=== PATIENT | male | born 1940 | race Caucasian/White ===

== ENCOUNTER 2020-05-15 11:28 | Emergency (ER) | payer OTHER ==
[2020-05-15 11:44] VITALS: BMI 18.6
[2020-05-15] MEDS ORDERED: LACTATED RINGERS SOLUTION 1000 ML INFUS.BAG IV ONE (13:47)
[2020-05-15 13:54] LABS: VENOUS BASE EXCESS -0.8 mmol/L (-2-2); VENOUS O2 SATURATION 58.4 % (70-80); VENOUS PH 7.306 (7.310-7.410)
[2020-05-15 13:56] LABS: URINE APPEARANCE CLEAR; URINE BILIRUBIN NEGATIVE (NEGATIVE); URINE COLOR YELLOW; URINE GLUCOSE (UA) 3+ (NEGATIVE); URINE KETONE TRACE (NEGATIVE); URINE LEUK ESTERASE NEGATIVE (NEGATIVE); URINE NITRITE NEGATIVE (NEGATIVE); URINE PROTEIN TRACE (NEGATIVE); URINE UROBILINOGEN 0.2 mg/dL (0.2-1.0)
[2020-05-15 13:58] LABS: BASO % 0.5 % (0-2.0); HEMATOCRIT 39.1 % (35.4-49); HEMOGLOBIN 12.8 GM/dL (11.7-16.9); LYMPH % 18.7 % (8-40); MCH 28.1 pg (25.7-33.7); MCHC 32.7 g/dl (32.0-35.9); MEAN CELL VOLUME 85.9 fl (80-96); MEAN PLT VOLUME 7.3 fl (7.5-11.1); MONO % 6.9 % (3.8-10.2); NEUT % 71.9 % (42.8-82.8); PLATELET COUNT 236 K/MM3 (134-434); RBC 4.56 M/mm3 (4.00-5.60); RDW 17.5 % (11.9-15.9); WHITE BLOOD COUNT 5.6 K/mm3 (4.0-10.0)
[2020-05-15 14:20] LABS: CHLORIDE 99 mmol/L (98-107); POTASSIUM 4.7 mmol/L (3.5-5.1); SODIUM 136 mmol/L (136-145)
[2020-05-15 14:22] LABS: ANION GAP 9 MMOL/L (8-16); BLOOD UREA NITROGEN 21.7 mg/dL (7-18); CALCIUM 9.1 mg/dL (8.5-10.1); CO2 28 mmol/L (21-32)
[2020-05-15 14:25] LABS: CREATININE 1.1 mg/dL (0.55-1.3); SGOT/AST 9 U/L (15-37); SGPT/ALT 17 U/L (13-61)
[2020-05-15 14:27] LABS: BILIRUBIN,TOTAL 0.5 mg/dL (0.2-1); TOT PROT 7.4 g/dl (6.4-8.2)
[2020-05-15 14:28] LABS: ALK PHOS 100 U/L (45-117)
[2020-05-15 14:37] LABS: GLUCOSE,RANDOM 434 mg/dL (74-106)
[2020-05-15] MEDS ORDERED: SODIUM CHLORIDE 0.9% 500 ML INFUS.BAG IV ONE (15:02)
[2020-05-15 17:18] VITALS: BP 123/72; PULSE 82; TEMP 97.2
== END 2020-05-15 18:09 | disposition home or self-care (01) ==
LOC: JER 11:28
DX: E11.65 Type 2 diabetes mellitus with hyperglycemia (principal)
CPT/HCPCS: 36415; 71045-TC-FY; 80053; 81003; 82010; 82550; 82803; 82962; 84484; 85025; 93005; 93010; 99285-25

== ENCOUNTER 2020-11-01 13:44 | Inpatient (IN) | payer OTHER ==
[2020-11-01] MEDS ORDERED: SODIUM CHLORIDE 1,000 ML IV STA ×2 (14:29→16:45)
[2020-11-01 16:01] LABS: BASO % 0.1 % (0-2.0); HEMATOCRIT 36.7 % (35.4-49); LYMPH % 3.2 % (8-40); MCH 28.1 pg (25.7-33.7); MCHC 32.7 g/dl (32.0-35.9); MONO % 4.3 % (3.8-10.2); NEUT % 92.4 % (42.8-82.8); PLATELET COUNT 279 K/MM3 (134-434); RBC 4.26 M/mm3 (4.00-5.60); RDW 15.4 % (11.9-15.9); WHITE BLOOD COUNT 13.2 K/mm3 (4.0-10.0)
[2020-11-01 16:09] LABS: INR 1.14 (0.83-1.09); PROTHROMBIN TIME (PATIENT) 13.7 SEC (9.7-13.0)
[2020-11-01 16:11] LABS: ACTIVATED PTT 29.7 SECONDS (25.2-36.5)
[2020-11-01 16:18] LABS: CHLORIDE 103 mmol/L (98-107); SODIUM 137 mmol/L (136-145)
[2020-11-01 16:20] LABS: CALCIUM 8.8 mg/dL (8.5-10.1)
[2020-11-01 16:22] LABS: ALBUMIN 3.2 g/dl (3.4-5.0); ANION GAP 8 MMOL/L (8-16); CO2 26 mmol/L (21-32)
[2020-11-01 16:24] LABS: BLOOD UREA NITROGEN 26.6 mg/dL (7-18); GLUCOSE,RANDOM 144 mg/dL (74-106)
[2020-11-01 16:25] LABS: CREATININE 0.9 mg/dL (0.55-1.3); SGOT/AST 18 U/L (15-37); SGPT/ALT 20 U/L (13-61)
[2020-11-01 16:26] LABS: BILIRUBIN,TOTAL 0.6 mg/dL (0.2-1); TOT PROT 7.4 g/dl (6.4-8.2)
[2020-11-01 16:28] LABS: ALK PHOS 75 U/L (45-117)
[2020-11-01 16:38] LABS: ANISOCYTOSIS 1+; MACROCYTOSIS 0; PLATELET ESTIMATE NORMAL
[2020-11-01 16:39] LABS: PH,URINE 6.5 (5.0-8.0); URINE APPEARANCE CLEAR; URINE BILIRUBIN NEGATIVE (NEGATIVE); URINE COLOR YELLOW; URINE GLUCOSE (UA) NEGATIVE (NEGATIVE); URINE KETONE TRACE (NEGATIVE); URINE LEUK ESTERASE NEGATIVE (NEGATIVE); URINE NITRITE NEGATIVE (NEGATIVE); URINE PROTEIN TRACE (NEGATIVE)
[2020-11-01 16:44] LABS: LACTIC ACID 2.7 mmol/L (0.4-2.0)
[2020-11-01] MEDS ORDERED: AZITHROMYCIN IVPB 500 MG in DEXTROSE 5%-WATER - 250 ML IVPB ONE (18:08)
[2020-11-01] MEDS ORDERED: CEFTRIAXONE 1 GM in DEXTROSE 5%-WATER - 100 ML IVPB ONE (18:08)
[2020-11-01] MEDS ORDERED: CEFTRIAXONE 1 GM/50 ML BAG ONE (18:25)
[2020-11-01] MEDS ORDERED: AZITHROMYCIN IVPB 500 MG/250 ML BAG IVPB ONE (19:24)
[2020-11-01 20:52] LABS: LACTIC ACID 5.5 mmol/L (0.4-2.0)
[2020-11-01] MEDS: predniSONE 20 MG TABLET (UD) PO SCH (21:58)
[2020-11-01] MEDS: PANTOPRAZOLE 40 MG TABLET PO SCH (21:58)
[2020-11-01 22:24] LABS: CHOLESTEROL 148 mg/dL (50-200)
[2020-11-01 22:25] LABS: LDL CHOLESTEROL (ONLY SJRH) 67 mg/dL (5-100); TRIGLYCERIDES 98 mg/dL (0-150)
[2020-11-01 22:27] LABS: HDL CHOLESTEROL 56 mg/dL (40-60)
[2020-11-01 22:28] LABS: LACTIC ACID 4.3 mmol/L (0.4-2.0)
[2020-11-01] MEDS: INSULIN SLIDING SCALE (NOVOLOG) 1 VIAL SQ SCH (22:31)
[2020-11-01] MEDS: SODIUM CHLORIDE 1,000 ML IV SCH (22:33)
[2020-11-01 23:07] VITALS: BMI 18.5
[2020-11-02] MEDS ORDERED: ACETAMINOPHEN 1000 MG/100 ML VIAL (NON FORMULARY) IVPB PRN (05:53)
[2020-11-02] MEDS: INSULIN SLIDING SCALE (NOVOLOG) 1 VIAL SQ SCH ×4 (06:00→21:27)
[2020-11-02 08:11] LABS: BASO % 0.1 % (0-2.0); HEMATOCRIT 33.5 % (35.4-49); HEMOGLOBIN 11.1 GM/dL (11.7-16.9); LYMPH % 6.7 % (8-40); MCHC 33.1 g/dl (32.0-35.9); MEAN CELL VOLUME 87.4 fl (80-96); MONO % 3.5 % (3.8-10.2); NEUT % 89.7 % (42.8-82.8); PLATELET COUNT 255 K/MM3 (134-434); RBC 3.83 M/mm3 (4.00-5.60); RDW 15.4 % (11.9-15.9); WHITE BLOOD COUNT 11.9 K/mm3 (4.0-10.0)
[2020-11-02 08:29] LABS: ALBUMIN 2.6 g/dl (3.4-5.0); BLOOD UREA NITROGEN 18.8 mg/dL (7-18)
[2020-11-02 08:30] LABS: BILIRUBIN,TOTAL 0.4 mg/dL (0.2-1); TOT PROT 6.8 g/dl (6.4-8.2)
[2020-11-02 08:31] LABS: CALCIUM 8.6 mg/dL (8.5-10.1)
[2020-11-02 08:32] LABS: CREATININE 0.8 mg/dL (0.55-1.3); MAGNESIUM 1.9 mg/dL (1.8-2.4); PHOSPHOROUS 3.4 mg/dL (2.5-4.9)
[2020-11-02] MEDS ORDERED: AZITHROMYCIN IVPB 250 MG in DEXTROSE 5%-WATER - 250 ML IVPB SCH (10:00)
[2020-11-02] MEDS ORDERED: CEFTRIAXONE 1 GM in DEXTROSE 5%-WATER - 50 ML IVPB SCH (10:00)
[2020-11-02] MEDS ORDERED: DEXTROSE 5%-WATER - 50 ML IVPB ONE (10:07)
[2020-11-02] MEDS ORDERED: cefTRIAXone SODIUM 1 GM VIAL ONE (10:07)
[2020-11-02] MEDS ORDERED: PT OWN MED DRAWER 7, Y5N ONE (10:07)
[2020-11-02] MEDS: predniSONE 20 MG TABLET (UD) PO SCH (10:12)
[2020-11-02] MEDS: PANTOPRAZOLE 40 MG TABLET PO SCH (10:12)
[2020-11-02] MEDS: ENOXAPARIN NA (PORCINE) 40 MG/0.4 ML DISP.SYRIN SQ SCH (10:13)
[2020-11-02] MEDS: SODIUM CHLORIDE 1,000 ML IV SCH ×2 (16:33→21:27)
[2020-11-03] MEDS: SODIUM CHLORIDE 1,000 ML IV SCH (06:20)
[2020-11-03] MEDS: INSULIN SLIDING SCALE (NOVOLOG) 1 VIAL SQ SCH ×4 (06:20→21:51)
[2020-11-03 08:00] LABS: BASO % 0.2 % (0-2.0); EOS % 0.2 % (0-4.5); HEMATOCRIT 31.6 % (35.4-49); HEMOGLOBIN 10.6 GM/dL (11.7-16.9); LYMPH % 17.2 % (8-40); MCH 29.1 pg (25.7-33.7); MCHC 33.7 g/dl (32.0-35.9); MEAN CELL VOLUME 86.3 fl (80-96); MEAN PLT VOLUME 7.2 fl (7.5-11.1); MONO % 5.5 % (3.8-10.2); NEUT % 76.9 % (42.8-82.8); PLATELET COUNT 293 K/MM3 (134-434); RBC 3.66 M/mm3 (4.00-5.60); RDW 15.7 % (11.9-15.9); WHITE BLOOD COUNT 10.6 K/mm3 (4.0-10.0)
[2020-11-03 08:33] LABS: ALBUMIN 2.4 g/dl (3.4-5.0); BLOOD UREA NITROGEN 26.1 mg/dL (7-18); CALCIUM 8.4 mg/dL (8.5-10.1); MAGNESIUM 1.9 mg/dL (1.8-2.4)
[2020-11-03 08:37] LABS: CREATININE 0.9 mg/dL (0.55-1.3)
[2020-11-03 08:38] LABS: BILIRUBIN,TOTAL 0.3 mg/dL (0.2-1); TOT PROT 6.3 g/dl (6.4-8.2)
[2020-11-03 08:49] LABS: ERYTHROCYTE SEDIMENTATION RATE 88 mm/hr (0-20)
[2020-11-03] MEDS ORDERED: PT OWN MED DRAWER 7, Y5N ONE (09:55)
[2020-11-03] MEDS: PANTOPRAZOLE 40 MG TABLET PO SCH (09:58)
[2020-11-03] MEDS: ENOXAPARIN NA (PORCINE) 40 MG/0.4 ML DISP.SYRIN SQ SCH (09:58)
[2020-11-03] MEDS: predniSONE 20 MG TABLET (UD) PO SCH (09:58)
[2020-11-03] MEDS ORDERED: INSULIN (NOVOLOG) ASPART 100 UNITS/ML 10ML VIAL ONE (21:04)
[2020-11-04] MEDS: INSULIN SLIDING SCALE (NOVOLOG) 1 VIAL SQ SCH ×2 (06:27→12:22)
[2020-11-04 08:09] LABS: BASO % 0.4 % (0-2.0); EOS % 0.3 % (0-4.5); HEMATOCRIT 32.8 % (35.4-49); HEMOGLOBIN 10.8 GM/dL (11.7-16.9); LYMPH % 24.3 % (8-40); MCH 28.3 pg (25.7-33.7); MCHC 32.9 g/dl (32.0-35.9); MEAN CELL VOLUME 86.1 fl (80-96); MEAN PLT VOLUME 6.9 fl (7.5-11.1); MONO % 4.3 % (3.8-10.2); NEUT % 70.7 % (42.8-82.8); PLATELET COUNT 301 K/MM3 (134-434); RBC 3.81 M/mm3 (4.00-5.60); RDW 15.7 % (11.9-15.9); WHITE BLOOD COUNT 8.9 K/mm3 (4.0-10.0)
[2020-11-04 08:30] LABS: CALCIUM 8.6 mg/dL (8.5-10.1)
[2020-11-04 08:32] LABS: ALBUMIN 2.4 g/dl (3.4-5.0); MAGNESIUM 1.9 mg/dL (1.8-2.4)
[2020-11-04 08:35] LABS: CREATININE 0.8 mg/dL (0.55-1.3)
[2020-11-04 08:36] LABS: BILIRUBIN,TOTAL 0.9 mg/dL (0.2-1); TOT PROT 6.3 g/dl (6.4-8.2)
[2020-11-04] MEDS: predniSONE 20 MG TABLET (UD) PO SCH (09:08)
[2020-11-04] MEDS: PANTOPRAZOLE 40 MG TABLET PO SCH (09:09)
[2020-11-04] MEDS: ENOXAPARIN NA (PORCINE) 40 MG/0.4 ML DISP.SYRIN SQ SCH (09:09)
[2020-11-04] MEDS ORDERED: CELECOXIB 200 MG CAPSULE PO SCH (10:00)
[2020-11-04] MEDS ORDERED: INSULIN (NOVOLOG) ASPART 100 UNITS/ML 10ML VIAL ONE (12:19)
[2020-11-04 15:36] VITALS: BP 136/68; PULSE 64; TEMP 97.9
== END 2020-11-04 17:21 | disposition home health service (06) | DRG 546 ==
LOC: JER 13:44 → UNDOADMOB 17:04 → JERBED 17:04 → INTOOBSV 17:04 → JERBED 20:42 → J8W 20:42 → JERBED 11-02 14:54 → J8W 11-02 14:54 → OBSVTOIN 11-02 15:47
PROVIDERS: ADMIT Internal Medicine; ATTEND Nurse Practitioner Acute Care
DX: M06.9 Rheumatoid arthritis, unspecified (principal); J98.11 Atelectasis; E87.2 Acidosis; D72.829 Elevated white blood cell count, unspecified; E11.9 Type 2 diabetes mellitus without complications; E86.0 Dehydration; M25.461 Effusion, right knee; M25.462 Effusion, left knee; R53.1 Weakness; F17.210 Nicotine dependence, cigarettes, uncomplicated
CPT/HCPCS: 36415; 70450-TC; 71045-TC-FY; 71260-TC; 73564-TC-LT-FY; 73564-TC-RT-FY; 74177-TC; 80053; 80061; 81003; 82550; 82962; 83036; 83605; 83721; 83735; 84100; 84443; 84484; 85025; 85610; 85651; 85730; 86140; 87040; 87086; 87804; 87899; 93005; 93010; 97116-GP; 97162-GP; 99285-25; C9803; G0378; J0131; Q9967; U0003; U0005

== ENCOUNTER 2021-11-07 18:30 | Emergency (ER) | payer OTHER ==
[2021-11-07 18:41] VITALS: TEMP 98.7; BMI 21.1
[2021-11-07] MEDS ORDERED: BEBTELOVIMAB (EUA) 175 MG/2 ML VIAL IVPUSH ONE (20:03)
[2021-11-07 22:19] VITALS: BP 117/61; PULSE 79
== END 2021-11-07 22:19 | disposition home or self-care (01) ==
LOC: JCOVINFU 18:30
PROC: 3E033GC Introduction of Other Therapeutic Substance into Peripheral Vein, Percutaneous Approach (ICD-10-PCS; principal; 2021-11-07)
DX: U07.1 COVID-19 (principal)
CPT/HCPCS: 99284-25; M0222; Q0222

== ENCOUNTER 2022-05-08 14:39 | Inpatient (IN) | payer OTHER ==
[2022-05-08 18:37] LABS: BASO % 0.6 % (0-2.0); HEMATOCRIT 34.5 % (35.4-49); HEMOGLOBIN 10.8 GM/dL (11.7-16.9); LYMPH % 23.2 % (8-40); MCH 23.9 pg (25.7-33.7); MCHC 31.4 g/dl (32.0-35.9); MEAN CELL VOLUME 76.1 fl (80-96); MEAN PLT VOLUME 6.9 fl (7.5-11.1); MONO % 8.7 % (3.8-10.2); NEUT % 65.5 % (42.8-82.8); PLATELET COUNT 358 10^3/uL (134-434); RBC 4.54 M/mm3 (4.00-5.60); RDW 18.4 % (11.9-15.9); WHITE BLOOD COUNT 10.1 K/mm3 (4.0-10.0)
[2022-05-08 18:41] LABS: INR 1.06 (0.83-1.09); PROTHROMBIN TIME (PATIENT) 12.2 SEC (9.7-13.0)
[2022-05-08 18:44] LABS: ACTIVATED PTT 29.8 SECONDS (25.2-36.5)
[2022-05-08 19:11] LABS: CALCIUM 9.1 mg/dL (8.5-10.1)
[2022-05-08 19:13] LABS: ALBUMIN 3.4 g/dl (3.4-5.0); BLOOD UREA NITROGEN 28.6 mg/dL (7-18)
[2022-05-08 19:15] LABS: CREATININE 1.1 mg/dL (0.55-1.3)
[2022-05-08 19:17] LABS: BILIRUBIN,TOTAL 0.2 mg/dL (0.2-1); TOT PROT 7.2 g/dl (6.4-8.2)
[2022-05-08] MEDS ORDERED: ENOXAPARIN NA (PORCINE) 60 MG/0.6 ML DISP.SYRIN SQ ONE ×2 (22:15→22:46)
[2022-05-08] MEDS ORDERED: SODIUM CHLORIDE 1,000 ML IV STA (22:53)
[2022-05-09] MEDS: SODIUM CHLORIDE 1,000 ML IV SCH ×2 (01:46→22:13)
[2022-05-09 08:02] LABS: BASO % 0.6 % (0-2.0); EOS % 1.8 % (0-4.5); HEMATOCRIT 30.2 % (35.4-49); HEMOGLOBIN 9.6 GM/dL (11.7-16.9); LYMPH % 24.3 % (8-40); MCH 23.9 pg (25.7-33.7); MCHC 31.7 g/dl (32.0-35.9); MEAN CELL VOLUME 75.4 fl (80-96); MEAN PLT VOLUME 7.1 fl (7.5-11.1); MONO % 8.9 % (3.8-10.2); NEUT % 64.4 % (42.8-82.8); PLATELET COUNT 277 10^3/uL (134-434); RBC 4.01 M/mm3 (4.00-5.60); WHITE BLOOD COUNT 5.9 K/mm3 (4.0-10.0)
[2022-05-09] MEDS ORDERED: ACETAMINOPHEN INJECTION 100 ML IVPB ONE (08:08)
[2022-05-09] MEDS ORDERED: ENOXAPARIN NA (PORCINE) 60 MG/0.6 ML DISP.SYRIN SQ ONE (08:08)
[2022-05-09] MEDS: INSULIN SLIDING SCALE (NOVOLOG) 1 VIAL SQ SCH ×4 (08:23→21:30)
[2022-05-09] MEDS: ACETAMINOPHEN 1000 MG/100 ML BAG IVPB PRN (08:23)
[2022-05-09 09:35] LABS: ALBUMIN 2.9 g/dl (3.4-5.0); CALCIUM 8.5 mg/dL (8.5-10.1); MAGNESIUM 1.7 mg/dL (1.8-2.4)
[2022-05-09 09:37] LABS: CREATININE 0.8 mg/dL (0.55-1.3)
[2022-05-09 09:41] LABS: BILIRUBIN,TOTAL 0.4 mg/dL (0.2-1)
[2022-05-09 10:23] LABS: TOT PROT 6.3 g/dl (6.4-8.2)
[2022-05-09] MEDS: ENOXAPARIN NA (PORCINE) 30 MG/0.3 ML DISP.SYRIN SQ SCH ×2 (11:22→21:30)
[2022-05-09] MEDS: HYDROXYCHLOROQUINE SO4 200 MG TABLET (FP) PO SCH ×2 (11:22→21:29)
[2022-05-09 11:59] LABS: URINE APPEARANCE CLEAR; URINE BILIRUBIN NEGATIVE (NEGATIVE); URINE COLOR YELLOW; URINE GLUCOSE (UA) NEGATIVE (NEGATIVE); URINE KETONE NEGATIVE (NEGATIVE); URINE LEUK ESTERASE NEGATIVE (NEGATIVE); URINE NITRITE NEGATIVE (NEGATIVE); URINE PROTEIN NEGATIVE (NEGATIVE); URINE UROBILINOGEN 0.2 mg/dL (0.2-1.0)
[2022-05-09 12:52] VITALS: BMI 18.6
[2022-05-09] MEDS ORDERED: INSULIN (NOVOLOG) ASPART 100 UNITS/ML 10ML VIAL ONE (21:06)
[2022-05-09] MEDS: ATORVASTATIN CA 20 MG TABLET (FP) PO SCH (21:30)
[2022-05-10] MEDS: SODIUM CHLORIDE 1,000 ML IV SCH (01:45)
[2022-05-10] MEDS: ACETAMINOPHEN 1000 MG/100 ML BAG IVPB PRN (01:45)
[2022-05-10] MEDS: INSULIN SLIDING SCALE (NOVOLOG) 1 VIAL SQ SCH ×4 (06:07→22:17)
[2022-05-10 08:14] LABS: BASO % 0.6 % (0-2.0); EOS % 1.6 % (0-4.5); HEMATOCRIT 29.6 % (35.4-49); HEMOGLOBIN 9.6 GM/dL (11.7-16.9); MCH 24.1 pg (25.7-33.7); MCHC 32.4 g/dl (32.0-35.9); MEAN CELL VOLUME 74.3 fl (80-96); MEAN PLT VOLUME 6.9 fl (7.5-11.1); MONO % 9.3 % (3.8-10.2); NEUT % 61.5 % (42.8-82.8); PLATELET COUNT 275 10^3/uL (134-434); RBC 3.98 M/mm3 (4.00-5.60); RDW 18.2 % (11.9-15.9); WHITE BLOOD COUNT 5.6 K/mm3 (4.0-10.0)
[2022-05-10 08:35] LABS: BLOOD UREA NITROGEN 21.5 mg/dL (7-18); CALCIUM 8.9 mg/dL (8.5-10.1)
[2022-05-10 08:39] LABS: CREATININE 0.8 mg/dL (0.55-1.3)
[2022-05-10] MEDS: HYDROXYCHLOROQUINE SO4 200 MG TABLET (FP) PO SCH ×2 (10:26→22:13)
[2022-05-10] MEDS: ENOXAPARIN NA (PORCINE) 60 MG/0.6 ML DISP.SYRIN SQ SCH ×2 (10:28→22:18)
[2022-05-10] MEDS: ATORVASTATIN CA 20 MG TABLET (FP) PO SCH (22:13)
[2022-05-10] MEDS ORDERED: ACETAMINOPHEN 1000 MG/100 ML BAG IVPB PRN (23:16)
[2022-05-10] MEDS ORDERED: KETOROLAC TROMETHAMINE 15 MG/ML VIAL IVPUSH PRN (23:16)
[2022-05-10] MEDS ORDERED: morphine SULFATE 4 MG/ML VIAL IVPUSH PRN (23:17)
[2022-05-11] MEDS: SODIUM CHLORIDE 1,000 ML IV SCH (04:54)
[2022-05-11] MEDS: INSULIN SLIDING SCALE (NOVOLOG) 1 VIAL SQ SCH ×4 (06:02→22:29)
[2022-05-11] MEDS: ENOXAPARIN NA (PORCINE) 30 MG/0.3 ML DISP.SYRIN SQ SCH (08:45)
[2022-05-11 10:08] LABS: BASO % 0.6 % (0-2.0); EOS % 3.4 % (0-4.5); HEMATOCRIT 29.3 % (35.4-49); HEMOGLOBIN 9.3 GM/dL (11.7-16.9); LYMPH % 36.3 % (8-40); MCHC 31.9 g/dl (32.0-35.9); MEAN CELL VOLUME 75.3 fl (80-96); MEAN PLT VOLUME 6.9 fl (7.5-11.1); MONO % 7.5 % (3.8-10.2); NEUT % 52.2 % (42.8-82.8); PLATELET COUNT 315 10^3/uL (134-434); RDW 18.4 % (11.9-15.9); WHITE BLOOD COUNT 5.8 K/mm3 (4.0-10.0)
[2022-05-11] MEDS: ENOXAPARIN NA (PORCINE) 60 MG/0.6 ML DISP.SYRIN SQ SCH ×2 (10:32→22:04)
[2022-05-11] MEDS: HYDROXYCHLOROQUINE SO4 200 MG TABLET (FP) PO SCH ×2 (10:33→22:03)
[2022-05-11 11:01] LABS: CALCIUM 8.5 mg/dL (8.5-10.1)
[2022-05-11 11:02] LABS: BLOOD UREA NITROGEN 18.1 mg/dL (7-18)
[2022-05-11 11:05] LABS: CREATININE 0.7 mg/dL (0.55-1.3)
[2022-05-11] MEDS: LIDOCAINE 5% TOPICAL PATCH TP SCH (13:47)
[2022-05-11] MEDS ORDERED: CEFTRIAXONE 1 GM in DEXTROSE 5%-WATER - 50 ML IVPB ONE (19:21)
[2022-05-11] MEDS: ATORVASTATIN CA 20 MG TABLET (FP) PO SCH (22:03)
[2022-05-11] MEDS: LIDOCAINE PATCH REMOVAL MC SCH (22:03)
[2022-05-12] MEDS: INSULIN SLIDING SCALE (NOVOLOG) 1 VIAL SQ SCH ×4 (07:00→23:32)
[2022-05-12] MEDS: SODIUM CHLORIDE 1,000 ML IV SCH (08:24)
[2022-05-12] MEDS: PANTOPRAZOLE 40 MG TABLET PO SCH (10:14)
[2022-05-12] MEDS: LIDOCAINE 5% TOPICAL PATCH TP SCH (10:14)
[2022-05-12] MEDS: ENOXAPARIN NA (PORCINE) 60 MG/0.6 ML DISP.SYRIN SQ SCH ×2 (10:15→22:54)
[2022-05-12] MEDS: HYDROXYCHLOROQUINE SO4 200 MG TABLET (FP) PO SCH ×2 (10:16→22:54)
[2022-05-12] MEDS ORDERED: INSULIN (NOVOLOG) ASPART 100 UNITS/ML 10ML VIAL ONE (22:46)
[2022-05-12] MEDS: LIDOCAINE PATCH REMOVAL MC SCH (22:54)
[2022-05-12] MEDS: ATORVASTATIN CA 20 MG TABLET (FP) PO SCH (22:54)
[2022-05-13] MEDS: INSULIN SLIDING SCALE (NOVOLOG) 1 VIAL SQ SCH ×4 (06:33→22:13)
[2022-05-13] MEDS ORDERED: SODIUM CHLORIDE 1,000 ML IV SCH ×2 (08:15→18:09)
[2022-05-13 08:56] LABS: N-TERMINAL BNP 528.1 pg/ml (5-450)
[2022-05-13 10:22] LABS: BASO % 0.6 % (0-2.0); EOS % 3.4 % (0-4.5); HEMATOCRIT 29.3 % (35.4-49); HEMOGLOBIN 9.4 GM/dL (11.7-16.9); LYMPH % 29.4 % (8-40); MCH 24.1 pg (25.7-33.7); MEAN CELL VOLUME 75.1 fl (80-96); MEAN PLT VOLUME 6.8 fl (7.5-11.1); MONO % 8.7 % (3.8-10.2); NEUT % 57.9 % (42.8-82.8); PLATELET COUNT 304 10^3/uL (134-434); RDW 18.4 % (11.9-15.9); WHITE BLOOD COUNT 4.5 K/mm3 (4.0-10.0)
[2022-05-13] MEDS: PANTOPRAZOLE 40 MG TABLET PO SCH (10:29)
[2022-05-13] MEDS: LIDOCAINE 5% TOPICAL PATCH TP SCH (10:29)
[2022-05-13] MEDS: HYDROXYCHLOROQUINE SO4 200 MG TABLET (FP) PO SCH ×2 (10:29→22:04)
[2022-05-13 10:31] LABS: ALBUMIN 2.6 g/dl (3.4-5.0); BLOOD UREA NITROGEN 15.6 mg/dL (7-18); CALCIUM 8.3 mg/dL (8.5-10.1); MAGNESIUM 1.9 mg/dL (1.8-2.4)
[2022-05-13 10:34] LABS: CREATININE 0.7 mg/dL (0.55-1.3)
[2022-05-13 10:36] LABS: BILIRUBIN,TOTAL 0.3 mg/dL (0.2-1); TOT PROT 6.2 g/dl (6.4-8.2)
[2022-05-13] MEDS ORDERED: FENTANYL CITRATE/PF 50 MCG/ML VIAL ONE ×2 (16:18→17:50)
[2022-05-13] MEDS ORDERED: MIDAZOLAM HCL 2 MG/2 ML SINGLE DOSE VIAL ONE (16:18)
[2022-05-13] MEDS ORDERED: ceFAZolin SODIUM 1 GM VIAL IVPB ONE (16:50)
[2022-05-13] MEDS ORDERED: ceFAZolin SODIUM 1 GM VIAL ONE (16:53)
[2022-05-13] MEDS ORDERED: LIDOCAINE HCL 1%, 10 MG/ML (20ML VIAL) NR ONE ×3 (16:56)
[2022-05-13] MEDS ORDERED: HEPARIN NA (PORCINE) 5,000 UNITS/ML 1ML VIAL TP ONE ×2 (16:58)
[2022-05-13] MEDS ORDERED: HEPARIN NA (PORCINE) 5,000 UNITS/ML 1ML VIAL ONE (17:08)
[2022-05-13] MEDS ORDERED: ONDANSETRON 4 MG/2 ML VIAL ONE (17:44)
[2022-05-13] MEDS ORDERED: KETOROLAC TROMETHAMINE 30 MG/1 ML VIAL ONE (17:44)
[2022-05-13] MEDS ORDERED: LACTATED RINGERS SOLUTION 1,000 ML IV SCH ×2 (17:45→18:09)
[2022-05-13] MEDS ORDERED: PROMETHAZINE HCL 25 MG/1 ML VIAL IVPUSH PRN ×2 (17:45→18:09)
[2022-05-13] MEDS ORDERED: ONDANSETRON 4 MG/2 ML VIAL IVPUSH PRN ×2 (17:45→18:09)
[2022-05-13] MEDS ORDERED: KETOROLAC TROMETHAMINE 15 MG/ML VIAL IVPUSH ONE (17:46)
[2022-05-13] MEDS: KETOROLAC TROMETHAMINE 15 MG/ML VIAL IVPUSH ONE ×2 (17:46→17:47)
[2022-05-13] MEDS ORDERED: hydrALAZINE HCL 20 MG/ML VIAL IVPUSH ONE ×2 (17:47→18:09)
[2022-05-13] MEDS ORDERED: CLOPIDOGREL BISULFATE 75 MG TABLET (FP) ONE (17:55)
[2022-05-13] MEDS ORDERED: morphine SULFATE 4 MG/ML VIAL IVPUSH PRN (18:09)
[2022-05-13] MEDS: CLOPIDOGREL BISULFATE 75 MG TABLET (FP) PO SCH (18:15)
[2022-05-13] MEDS ORDERED: LIDOCAINE PATCH REMOVAL MC SCH ×2 (22:00)
[2022-05-13] MEDS ORDERED: ATORVASTATIN CA 20 MG TABLET (FP) PO SCH (22:00)
[2022-05-14] MEDS: INSULIN SLIDING SCALE (NOVOLOG) 1 VIAL SQ SCH (06:19)
[2022-05-14 08:10] VITALS: BP 127/61; PULSE 80; RESP 18; TEMP 97.7
[2022-05-14] MEDS: HYDROXYCHLOROQUINE SO4 200 MG TABLET (FP) PO SCH (09:28)
[2022-05-14] MEDS: CLOPIDOGREL BISULFATE 75 MG TABLET (FP) PO SCH (09:29)
[2022-05-14 09:36] LABS: BASO % 0.8 % (0-2.0); EOS % 2.6 % (0-4.5); HEMATOCRIT 29.5 % (35.4-49); HEMOGLOBIN 9.3 GM/dL (11.7-16.9); LYMPH % 18.1 % (8-40); MCH 23.9 pg (25.7-33.7); MCHC 31.7 g/dl (32.0-35.9); MEAN CELL VOLUME 75.3 fl (80-96); MEAN PLT VOLUME 6.7 fl (7.5-11.1); MONO % 8.7 % (3.8-10.2); NEUT % 69.8 % (42.8-82.8); PLATELET COUNT 311 10^3/uL (134-434); RBC 3.92 M/mm3 (4.00-5.60); RDW 18.1 % (11.9-15.9); WHITE BLOOD COUNT 5.3 K/mm3 (4.0-10.0)
[2022-05-14 09:47] LABS: ALBUMIN 2.6 g/dl (3.4-5.0); BLOOD UREA NITROGEN 23.5 mg/dL (7-18)
[2022-05-14 09:48] LABS: CALCIUM 8.5 mg/dL (8.5-10.1)
[2022-05-14 09:50] LABS: BILIRUBIN,TOTAL 0.4 mg/dL (0.2-1); CREATININE 0.9 mg/dL (0.55-1.3)
[2022-05-14 09:51] LABS: TOT PROT 6.4 g/dl (6.4-8.2)
[2022-05-14] MEDS ORDERED: LIDOCAINE 5% TOPICAL PATCH TP SCH (10:00)
[2022-05-14] MEDS ORDERED: PANTOPRAZOLE 40 MG TABLET PO SCH (10:00)
== END 2022-05-14 12:53 | disposition home health service (06) | DRG 253 ==
LOC: JER 14:39 → JERBED 21:58 → J8W 05-09 17:34
PROVIDERS: ADMIT Internal Medicine; ATTEND Nurse Practitioner Acute Care
PROC: B41DZZZ Fluoroscopy of Aorta and Bilateral Lower Extremity Arteries (ICD-10-PCS; 2022-05-13)
PROC: B40FYZZ Plain Radiography of Right Lower Extremity Arteries using Other Contrast (ICD-10-PCS; 2022-05-13)
PROC: 047H3EZ Dilation of Right External Iliac Artery with Two Intraluminal Devices, Percutaneous Approach (ICD-10-PCS; principal; 2022-05-13 16:30)
DX: E11.51 Type 2 diabetes mellitus with diabetic peripheral angiopathy without gangrene (principal); E87.20 Acidosis, unspecified; N17.9 Acute kidney failure, unspecified; J98.11 Atelectasis; I70.211 Atherosclerosis of native arteries of extremities with intermittent claudication, right leg; I74.5 Embolism and thrombosis of iliac artery; I10 Essential (primary) hypertension; E78.5 Hyperlipidemia, unspecified; M06.9 Rheumatoid arthritis, unspecified; D72.829 Elevated white blood cell count, unspecified; R91.8 Other nonspecific abnormal finding of lung field
CPT/HCPCS: 0241U-QW; 36415; 71045-TC-FY; 75635-TC; 76000-TC-FY; 80048; 80053; 80061; 81003; 82962; 83036; 83605; 83735; 83880; 84100; 84443; 85025; 85610; 85730; 86850; 86900; 86901; 87086; 93005; 93010; 93306-TC; 93971-TC; 94010; 94760; 99285-25; C1760; J1644; Q9967

== ENCOUNTER 2022-06-24 18:19 | Inpatient (IN) | payer OTHER ==
[2022-06-24 18:34] VITALS: BMI 19.9
[2022-06-24 21:00] LABS: VENOUS BASE EXCESS -0.8 mmol/L (-2-2); VENOUS O2 SATURATION 30.2 % (70-80); VENOUS PCO2 48.7 mmHg (38-52); VENOUS PH 7.338 (7.310-7.410)
[2022-06-24 21:07] LABS: BASO % 0.3 % (0-2.0); EOS % 0.6 % (0-4.5); HEMATOCRIT 34.8 % (35.4-49); HEMOGLOBIN 10.8 GM/dL (11.7-16.9); LYMPH % 10.5 % (8-40); MCH 23.8 pg (25.7-33.7); MEAN CELL VOLUME 76.6 fl (80-96); MEAN PLT VOLUME 6.7 fl (7.5-11.1); MONO % 5.5 % (3.8-10.2); NEUT % 83.1 % (42.8-82.8); PLATELET COUNT 307 10^3/uL (134-434); RBC 4.55 M/mm3 (4.00-5.60); RDW 18.2 % (11.9-15.9); WHITE BLOOD COUNT 9.6 K/mm3 (4.0-10.0)
[2022-06-24 21:24] LABS: CALCIUM 8.8 mg/dL (8.5-10.1)
[2022-06-24 21:25] LABS: ALBUMIN 3.3 g/dl (3.4-5.0); BLOOD UREA NITROGEN 31.9 mg/dL (7-18)
[2022-06-24 21:28] LABS: CREATININE 1.4 mg/dL (0.55-1.3)
[2022-06-24 21:30] LABS: BILIRUBIN,TOTAL 0.2 mg/dL (0.2-1); TOT PROT 7.1 g/dl (6.4-8.2)
[2022-06-24 21:36] LABS: PH,URINE 7.5 (5.0-8.0); URINE APPEARANCE CLEAR; URINE BILIRUBIN NEGATIVE (NEGATIVE); URINE COLOR YELLOW; URINE GLUCOSE (UA) NEGATIVE (NEGATIVE); URINE KETONE NEGATIVE (NEGATIVE); URINE LEUK ESTERASE NEGATIVE (NEGATIVE); URINE NITRITE NEGATIVE (NEGATIVE); URINE PROTEIN TRACE (NEGATIVE)
[2022-06-24] MEDS ORDERED: ASPIRIN 325 MG ENTERIC COATED TABLET (FP) PO ONE (22:06)
[2022-06-24] MEDS ORDERED: ASPIRIN 325 MG ENTERIC COATED TABLET (FP) ONE (22:14)
[2022-06-24] MEDS ORDERED: HALOPERIDOL LACTATE 5 MG/ML IM ONE ×2 (22:48→23:12)
[2022-06-25] MEDS ORDERED: SODIUM CHLORIDE 500 ML IV STA (04:56)
[2022-06-25] MEDS ORDERED: SODIUM CHLORIDE 1,000 ML IV SCH (05:00)
[2022-06-25 06:24] LABS: CALCIUM 9.2 mg/dL (8.5-10.1)
[2022-06-25 06:25] LABS: ALBUMIN 3.4 g/dl (3.4-5.0); BLOOD UREA NITROGEN 26.2 mg/dL (7-18); MAGNESIUM 1.9 mg/dL (1.8-2.4)
[2022-06-25 06:26] LABS: BASO % 0.6 % (0-2.0); EOS % 0.9 % (0-4.5); HEMATOCRIT 34.8 % (35.4-49); HEMOGLOBIN 10.9 GM/dL (11.7-16.9); LYMPH % 18.1 % (8-40); MCHC 31.5 g/dl (32.0-35.9); MEAN CELL VOLUME 76.2 fl (80-96); MEAN PLT VOLUME 6.6 fl (7.5-11.1); MONO % 7.7 % (3.8-10.2); NEUT % 72.7 % (42.8-82.8); PLATELET COUNT 303 10^3/uL (134-434); RBC 4.56 M/mm3 (4.00-5.60); RDW 18.3 % (11.9-15.9); WHITE BLOOD COUNT 8.8 K/mm3 (4.0-10.0)
[2022-06-25 06:28] LABS: CREATININE 0.9 mg/dL (0.55-1.3); PHOSPHOROUS 4.2 mg/dL (2.5-4.9)
[2022-06-25 06:29] LABS: BILIRUBIN,TOTAL 0.5 mg/dL (0.2-1); TOT PROT 7.4 g/dl (6.4-8.2)
[2022-06-25] MEDS: INSULIN SLIDING SCALE (NOVOLOG) 1 VIAL SQ SCH ×3 (07:34→21:36)
[2022-06-25] MEDS: ENOXAPARIN NA (PORCINE) 40 MG/0.4 ML DISP.SYRIN SQ SCH (11:56)
[2022-06-25] MEDS: ASPIRIN COATED 81 MG TABLET.EC PO SCH (11:56)
[2022-06-25] MEDS: CLOPIDOGREL BISULFATE 75 MG TABLET (FP) PO SCH (11:56)
[2022-06-25] MEDS ORDERED: ENOXAPARIN NA (PORCINE) 40 MG/0.4 ML DISP.SYRIN SQ ONE (11:57)
[2022-06-25] MEDS: ATORVASTATIN CA 80 MG TABLET (FP) PO SCH (21:36)
[2022-06-25] MEDS: HYDROXYCHLOROQUINE SO4 200 MG TABLET (FP) PO SCH (22:13)
[2022-06-26] MEDS: INSULIN SLIDING SCALE (NOVOLOG) 1 VIAL SQ SCH ×3 (06:05→17:12)
[2022-06-26 08:36] LABS: BASO % 0.3 % (0-2.0); EOS % 0.3 % (0-4.5); HEMATOCRIT 38.8 % (35.4-49); HEMOGLOBIN 12.3 GM/dL (11.7-16.9); LYMPH % 12.5 % (8-40); MCH 24.1 pg (25.7-33.7); MCHC 31.8 g/dl (32.0-35.9); MEAN CELL VOLUME 75.7 fl (80-96); MEAN PLT VOLUME 6.8 fl (7.5-11.1); MONO % 6.3 % (3.8-10.2); NEUT % 80.6 % (42.8-82.8); PLATELET COUNT 372 10^3/uL (134-434); RBC 5.12 M/mm3 (4.00-5.60); RDW 17.9 % (11.9-15.9); WHITE BLOOD COUNT 9.4 K/mm3 (4.0-10.0)
[2022-06-26 08:54] LABS: CALCIUM 9.4 mg/dL (8.5-10.1)
[2022-06-26 08:55] LABS: ALBUMIN 3.6 g/dl (3.4-5.0)
[2022-06-26 08:59] LABS: BILIRUBIN,TOTAL 0.6 mg/dL (0.2-1)
[2022-06-26] MEDS: ENOXAPARIN NA (PORCINE) 40 MG/0.4 ML DISP.SYRIN SQ SCH (11:44)
[2022-06-26] MEDS: ASPIRIN COATED 81 MG TABLET.EC PO SCH (11:56)
[2022-06-26] MEDS: CLOPIDOGREL BISULFATE 75 MG TABLET (FP) PO SCH (11:56)
[2022-06-26] MEDS: HYDROXYCHLOROQUINE SO4 200 MG TABLET (FP) PO SCH (11:56)
[2022-06-26] MEDS ORDERED: DEXTROSE 5%-0.45% SALINE 1,000 ML IV SCH (16:15)
[2022-06-27] MEDS: INSULIN SLIDING SCALE (NOVOLOG) 1 VIAL SQ SCH ×5 (01:13→21:36)
[2022-06-27] MEDS ORDERED: ACETAMINOPHEN 1000 MG/100 ML BAG IVPB PRN (01:34)
[2022-06-27 07:34] LABS: BASO % 1.1 % (0-2.0); EOS % 0.2 % (0-4.5); HEMATOCRIT 34.8 % (35.4-49); HEMOGLOBIN 11.2 GM/dL (11.7-16.9); LYMPH % 16.4 % (8-40); MCH 24.3 pg (25.7-33.7); MCHC 32.2 g/dl (32.0-35.9); MEAN CELL VOLUME 75.7 fl (80-96); MEAN PLT VOLUME 6.7 fl (7.5-11.1); MONO % 10.7 % (3.8-10.2); NEUT % 71.6 % (42.8-82.8); PLATELET COUNT 355 10^3/uL (134-434); RDW 17.9 % (11.9-15.9); WHITE BLOOD COUNT 9.6 K/mm3 (4.0-10.0)
[2022-06-27 07:57] LABS: ALBUMIN 3.2 g/dl (3.4-5.0); CALCIUM 8.6 mg/dL (8.5-10.1); MAGNESIUM 1.9 mg/dL (1.8-2.4)
[2022-06-27 07:59] LABS: CREATININE 1.2 mg/dL (0.55-1.3)
[2022-06-27 08:02] LABS: BILIRUBIN,TOTAL 0.6 mg/dL (0.2-1); TOT PROT 7.2 g/dl (6.4-8.2)
[2022-06-27] MEDS: ASPIRIN 300 MG SUPP.RECT RC SCH (10:14)
[2022-06-27] MEDS: ENOXAPARIN NA (PORCINE) 40 MG/0.4 ML DISP.SYRIN SQ SCH (10:14)
[2022-06-27] MEDS: AMINO ACIDS 4.25%/D5W 1,000 ML IV SCH (11:54)
[2022-06-28] MEDS: AMINO ACIDS 4.25%/D5W 1,000 ML IV SCH ×2 (00:41→11:57)
[2022-06-28] MEDS: INSULIN SLIDING SCALE (NOVOLOG) 1 VIAL SQ SCH ×4 (06:40→22:47)
[2022-06-28 07:58] LABS: BASO % 0.4 % (0-2.0); EOS % 0.4 % (0-4.5); HEMATOCRIT 33.6 % (35.4-49); HEMOGLOBIN 10.6 GM/dL (11.7-16.9); LYMPH % 15.2 % (8-40); MCHC 31.6 g/dl (32.0-35.9); MEAN CELL VOLUME 75.8 fl (80-96); MEAN PLT VOLUME 7.1 fl (7.5-11.1); MONO % 12.4 % (3.8-10.2); NEUT % 71.6 % (42.8-82.8); PLATELET COUNT 322 10^3/uL (134-434); RBC 4.44 M/mm3 (4.00-5.60); RDW 17.8 % (11.9-15.9); WHITE BLOOD COUNT 6.5 K/mm3 (4.0-10.0)
[2022-06-28 08:33] LABS: ALBUMIN 2.8 g/dl (3.4-5.0); BLOOD UREA NITROGEN 39.1 mg/dL (7-18); CALCIUM 8.3 mg/dL (8.5-10.1); MAGNESIUM 1.7 mg/dL (1.8-2.4)
[2022-06-28 08:36] LABS: CREATININE 0.8 mg/dL (0.55-1.3)
[2022-06-28 08:38] LABS: BILIRUBIN,TOTAL 0.5 mg/dL (0.2-1); TOT PROT 6.7 g/dl (6.4-8.2)
[2022-06-28] MEDS: ASPIRIN 300 MG SUPP.RECT RC SCH (10:15)
[2022-06-28] MEDS: ENOXAPARIN NA (PORCINE) 40 MG/0.4 ML DISP.SYRIN SQ SCH (10:16)
[2022-06-28] MEDS ORDERED: MAGNESIUM 2GM/50ML STERILE WATER IVPB IVPB ONE (10:29)
[2022-06-28] MEDS: ATORVASTATIN CA 80 MG TABLET (FP) PO SCH (22:47)
[2022-06-28] MEDS: HYDROXYCHLOROQUINE SO4 200 MG TABLET (FP) PO SCH (22:47)
[2022-06-29] MEDS: AMINO ACIDS 4.25%/D5W 1,000 ML IV SCH ×2 (00:53→11:29)
[2022-06-29] MEDS: INSULIN SLIDING SCALE (NOVOLOG) 1 VIAL SQ SCH ×4 (06:56→21:48)
[2022-06-29 07:46] LABS: BASO % 0.4 % (0-2.0); EOS % 0.8 % (0-4.5); HEMATOCRIT 33.4 % (35.4-49); HEMOGLOBIN 10.6 GM/dL (11.7-16.9); LYMPH % 19.1 % (8-40); MCHC 31.7 g/dl (32.0-35.9); MEAN CELL VOLUME 75.8 fl (80-96); MEAN PLT VOLUME 7.2 fl (7.5-11.1); MONO % 13.8 % (3.8-10.2); NEUT % 65.9 % (42.8-82.8); PLATELET COUNT 297 10^3/uL (134-434); RBC 4.41 M/mm3 (4.00-5.60); RDW 17.8 % (11.9-15.9); WHITE BLOOD COUNT 5.4 K/mm3 (4.0-10.0)
[2022-06-29 08:42] LABS: ALBUMIN 2.5 g/dl (3.4-5.0); BLOOD UREA NITROGEN 38.1 mg/dL (7-18); CALCIUM 8.7 mg/dL (8.5-10.1); MAGNESIUM 1.9 mg/dL (1.8-2.4)
[2022-06-29 08:45] LABS: CREATININE 0.8 mg/dL (0.55-1.3)
[2022-06-29 08:46] LABS: BILIRUBIN,TOTAL 0.4 mg/dL (0.2-1); TOT PROT 6.4 g/dl (6.4-8.2)
[2022-06-29] MEDS: CLOPIDOGREL BISULFATE 75 MG TABLET (FP) PO SCH (09:37)
[2022-06-29] MEDS: ENOXAPARIN NA (PORCINE) 40 MG/0.4 ML DISP.SYRIN SQ SCH (09:37)
[2022-06-29] MEDS: HYDROXYCHLOROQUINE SO4 200 MG TABLET (FP) PO SCH ×2 (09:37→21:39)
[2022-06-29] MEDS: ASPIRIN 300 MG SUPP.RECT RC SCH (09:37)
[2022-06-29] MEDS: METOPROLOL TARTRATE 5 MG/5 ML VIAL IVPUSH PRN (16:20)
[2022-06-29] MEDS: AMINO ACIDS/PROTEIN HYDROLYS 30 ML LIQUID.PKT PO SCH (17:45)
[2022-06-29] MEDS ORDERED: METOPROLOL TARTRATE 5 MG/5 ML VIAL IVPUSH ONE (21:34)
[2022-06-29] MEDS: ATORVASTATIN CA 20 MG TABLET (FP) PO SCH (21:38)
[2022-06-29] MEDS: METOPROLOL TARTRATE 25 MG TABLET (FP) PO SCH (21:38)
[2022-06-29] MEDS ORDERED: ACETAMINOPHEN 1000 MG/100 ML BAG IVPB ONE (21:39)
[2022-06-30] MEDS ORDERED: SODIUM CHLORIDE 250 ML IV STA ×2 (02:11→05:18)
[2022-06-30 04:13] LABS: BASO % 0.3 % (0-2.0); EOS % 0.1 % (0-4.5); HEMATOCRIT 27.5 % (35.4-49); HEMOGLOBIN 8.9 GM/dL (11.7-16.9); LYMPH % 12.9 % (8-40); MCH 24.7 pg (25.7-33.7); MCHC 32.6 g/dl (32.0-35.9); MEAN CELL VOLUME 75.9 fl (80-96); MEAN PLT VOLUME 7.2 fl (7.5-11.1); NEUT % 72.7 % (42.8-82.8); PLATELET COUNT 349 10^3/uL (134-434); RBC 3.62 M/mm3 (4.00-5.60); RDW 17.4 % (11.9-15.9); WHITE BLOOD COUNT 7.8 K/mm3 (4.0-10.0)
[2022-06-30 04:34] LABS: ALBUMIN 2.3 g/dl (3.4-5.0); CALCIUM 8.2 mg/dL (8.5-10.1)
[2022-06-30 04:37] LABS: CREATININE 1.2 mg/dL (0.55-1.3)
[2022-06-30 04:39] LABS: BILIRUBIN,TOTAL 0.5 mg/dL (0.2-1); TOT PROT 6.1 g/dl (6.4-8.2)
[2022-06-30 04:57] LABS: BLOOD UREA NITROGEN 79.7 mg/dL (7-18); LACTIC ACID 2.2 mmol/L (0.4-2.0)
[2022-06-30] MEDS ORDERED: VANCOMYCIN/WATER FOR INJ (PEG) 1,000 MG/200 ML BAG IVPB ONE (05:21)
[2022-06-30] MEDS: INSULIN SLIDING SCALE (NOVOLOG) 1 VIAL SQ SCH ×4 (07:08→22:43)
[2022-06-30] MEDS: METOPROLOL TARTRATE 5 MG/5 ML VIAL IVPUSH PRN (07:38)
[2022-06-30] MEDS ORDERED: SODIUM CHLORIDE 500 ML IV STA (07:51)
[2022-06-30] MEDS: AMINO ACIDS/PROTEIN HYDROLYS 30 ML LIQUID.PKT PO SCH ×2 (08:01→17:36)
[2022-06-30 08:28] LABS: BASO % 0.3 % (0-2.0); EOS % 0.1 % (0-4.5); HEMATOCRIT 31.3 % (35.4-49); LYMPH % 14.3 % (8-40); MCH 24.5 pg (25.7-33.7); MCHC 31.9 g/dl (32.0-35.9); MEAN CELL VOLUME 76.8 fl (80-96); MEAN PLT VOLUME 7.6 fl (7.5-11.1); MONO % 10.7 % (3.8-10.2); NEUT % 74.6 % (42.8-82.8); PLATELET COUNT 402 10^3/uL (134-434); RBC 4.08 M/mm3 (4.00-5.60); RDW 18.3 % (11.9-15.9)
[2022-06-30 08:53] LABS: CALCIUM 8.4 mg/dL (8.5-10.1)
[2022-06-30 08:54] LABS: ALBUMIN 2.4 g/dl (3.4-5.0); BLOOD UREA NITROGEN 77.2 mg/dL (7-18); MAGNESIUM 1.9 mg/dL (1.8-2.4)
[2022-06-30 08:58] LABS: CREATININE 1.2 mg/dL (0.55-1.3)
[2022-06-30 08:59] LABS: BILIRUBIN,TOTAL 0.5 mg/dL (0.2-1); TOT PROT 6.2 g/dl (6.4-8.2)
[2022-06-30 09:03] LABS: LACTIC ACID 3.1 mmol/L (0.4-2.0)
[2022-06-30] MEDS: HYDROXYCHLOROQUINE SO4 200 MG TABLET (FP) PO SCH ×2 (09:49→22:43)
[2022-06-30] MEDS: CLOPIDOGREL BISULFATE 75 MG TABLET (FP) PO SCH (09:49)
[2022-06-30] MEDS: ASPIRIN COATED 81 MG TABLET.EC PO SCH (09:49)
[2022-06-30] MEDS: ENOXAPARIN NA (PORCINE) 40 MG/0.4 ML DISP.SYRIN SQ SCH (09:49)
[2022-06-30] MEDS: METOPROLOL TARTRATE 25 MG TABLET (FP) PO SCH ×3 (09:58→22:43)
[2022-06-30] MEDS ORDERED: ENOXAPARIN NA (PORCINE) 60 MG/0.6 ML DISP.SYRIN SQ ONE (13:45)
[2022-06-30] MEDS: SODIUM CHLORIDE 1,000 ML IV SCH (16:00)
[2022-06-30] MEDS: PIPERACILLIN/TAZOB 3.375 GM 3.375 GM in DEXTROSE 5%-WATER - 50 ML IVPB SCH (17:37)
[2022-06-30] MEDS: ENOXAPARIN NA (PORCINE) 60 MG/0.6 ML DISP.SYRIN SQ SCH (22:43)
[2022-06-30] MEDS: ATORVASTATIN CA 20 MG TABLET (FP) PO SCH (22:43)
[2022-07-01] MEDS: PIPERACILLIN/TAZOB 3.375 GM 3.375 GM in DEXTROSE 5%-WATER - 50 ML IVPB SCH ×3 (03:09→17:12)
[2022-07-01 08:36] LABS: BASO % 0.2 % (0-2.0); HEMATOCRIT 25.3 % (35.4-49); HEMOGLOBIN 8.2 GM/dL (11.7-16.9); LYMPH % 10.6 % (8-40); MCH 24.3 pg (25.7-33.7); MCHC 32.4 g/dl (32.0-35.9); MEAN CELL VOLUME 74.9 fl (80-96); MEAN PLT VOLUME 7.6 fl (7.5-11.1); MONO % 10.6 % (3.8-10.2); NEUT % 78.6 % (42.8-82.8); PLATELET COUNT 391 10^3/uL (134-434); RBC 3.37 M/mm3 (4.00-5.60); RDW 18.4 % (11.9-15.9); WHITE BLOOD COUNT 12.4 K/mm3 (4.0-10.0)
[2022-07-01 08:58] LABS: CALCIUM 8.2 mg/dL (8.5-10.1)
[2022-07-01 08:59] LABS: ALBUMIN 2.1 g/dl (3.4-5.0); BLOOD UREA NITROGEN 79.9 mg/dL (7-18); MAGNESIUM 2.2 mg/dL (1.8-2.4)
[2022-07-01 09:02] LABS: CREATININE 1.2 mg/dL (0.55-1.3)
[2022-07-01 09:03] LABS: BILIRUBIN,TOTAL 0.5 mg/dL (0.2-1); TOT PROT 5.6 g/dl (6.4-8.2)
[2022-07-01] MEDS: CLOPIDOGREL BISULFATE 75 MG TABLET (FP) PO SCH (09:43)
[2022-07-01] MEDS: ASPIRIN COATED 81 MG TABLET.EC PO SCH (09:43)
[2022-07-01] MEDS: METOPROLOL TARTRATE 25 MG TABLET (FP) PO SCH ×2 (09:43→22:34)
[2022-07-01] MEDS: AMINO ACIDS/PROTEIN HYDROLYS 30 ML LIQUID.PKT PO SCH ×2 (09:44→17:12)
[2022-07-01] MEDS: ENOXAPARIN NA (PORCINE) 60 MG/0.6 ML DISP.SYRIN SQ SCH ×2 (09:44→22:34)
[2022-07-01] MEDS: HYDROXYCHLOROQUINE SO4 200 MG TABLET (FP) PO SCH ×2 (09:44→22:34)
[2022-07-01] MEDS: INSULIN SLIDING SCALE (NOVOLOG) 1 VIAL SQ SCH ×3 (12:03→22:44)
[2022-07-01] MEDS: SODIUM CHLORIDE 1,000 ML IV SCH (16:18)
[2022-07-01] MEDS: ATORVASTATIN CA 20 MG TABLET (FP) PO SCH (22:34)
[2022-07-02] MEDS: PIPERACILLIN/TAZOB 3.375 GM 3.375 GM in DEXTROSE 5%-WATER - 50 ML IVPB SCH ×3 (02:35→17:04)
[2022-07-02] MEDS: INSULIN SLIDING SCALE (NOVOLOG) 1 VIAL SQ SCH ×5 (06:23→22:45)
[2022-07-02 08:26] LABS: BASO % 0.1 % (0-2.0); EOS % 0.1 % (0-4.5); HEMATOCRIT 20.9 % (35.4-49); LYMPH % 11.3 % (8-40); MCH 24.8 pg (25.7-33.7); MCHC 32.1 g/dl (32.0-35.9); MEAN CELL VOLUME 77.1 fl (80-96); MEAN PLT VOLUME 7.5 fl (7.5-11.1); MONO % 6.9 % (3.8-10.2); NEUT % 81.6 % (42.8-82.8); PLATELET COUNT 347 10^3/uL (134-434); RBC 2.72 M/mm3 (4.00-5.60); RDW 18.4 % (11.9-15.9); WHITE BLOOD COUNT 9.9 K/mm3 (4.0-10.0)
[2022-07-02 08:29] LABS: CALCIUM 8.1 mg/dL (8.5-10.1)
[2022-07-02 08:30] LABS: MAGNESIUM 2.2 mg/dL (1.8-2.4)
[2022-07-02 08:33] LABS: CREATININE 1.1 mg/dL (0.55-1.3)
[2022-07-02 08:34] LABS: TOT PROT 5.4 g/dl (6.4-8.2)
[2022-07-02 08:45] LABS: BILIRUBIN,TOTAL 0.6 mg/dL (0.2-1)
[2022-07-02 08:53] LABS: HEMOGLOBIN 6.7 GM/dL (11.7-16.9)
[2022-07-02] MEDS ORDERED: PANTOPRAZOLE SODIUM 40 MG in SODIUM CHLORIDE 100 ML IVPB SCH (10:00)
[2022-07-02] MEDS ORDERED: PANTOPRAZOLE SODIUM 40 MG VIAL IVPUSH SCH (10:00)
[2022-07-02] MEDS: AMINO ACIDS/PROTEIN HYDROLYS 30 ML LIQUID.PKT PO SCH ×2 (11:58→17:04)
[2022-07-02] MEDS: METOPROLOL TARTRATE 25 MG TABLET (FP) PO SCH ×2 (11:59→23:28)
[2022-07-02] MEDS: APIXABAN 2.5 MG TABLET PO SCH ×2 (11:59→23:28)
[2022-07-02] MEDS: CLOPIDOGREL BISULFATE 75 MG TABLET (FP) PO SCH (11:59)
[2022-07-02] MEDS: ASPIRIN COATED 81 MG TABLET.EC PO SCH (11:59)
[2022-07-02] MEDS: HYDROXYCHLOROQUINE SO4 200 MG TABLET (FP) PO SCH ×2 (12:00→22:00)
[2022-07-02] MEDS ORDERED: SODIUM CHLORIDE 0.45% 1,000 ML IV SCH (12:00)
[2022-07-02 16:32] LABS: INR 1.68 (0.83-1.09); PROTHROMBIN TIME (PATIENT) 19.4 SEC (9.7-13.0)
[2022-07-02] MEDS: ATORVASTATIN CA 20 MG TABLET (FP) PO SCH (23:28)
[2022-07-03] MEDS: PIPERACILLIN/TAZOB 3.375 GM 3.375 GM in DEXTROSE 5%-WATER - 50 ML IVPB SCH ×3 (03:35→18:23)
[2022-07-03] MEDS: INSULIN SLIDING SCALE (NOVOLOG) 1 VIAL SQ SCH ×3 (07:40→17:04)
[2022-07-03 08:26] LABS: HEMATOCRIT 26.8 % (35.4-49); HEMOGLOBIN 8.6 GM/dL (11.7-16.9); MCH 26.1 pg (25.7-33.7); MCHC 32.1 g/dl (32.0-35.9); MEAN CELL VOLUME 81.3 fl (80-96); MEAN PLT VOLUME 7.3 fl (7.5-11.1); PLATELET COUNT 308 10^3/uL (134-434); RDW 18.1 % (11.9-15.9); WHITE BLOOD COUNT 16.1 K/mm3 (4.0-10.0)
[2022-07-03 08:58] LABS: ALBUMIN 2.3 g/dl (3.4-5.0); BLOOD UREA NITROGEN 86.7 mg/dL (7-18); CALCIUM 7.9 mg/dL (8.5-10.1)
[2022-07-03 08:59] LABS: MAGNESIUM 2.4 mg/dL (1.8-2.4)
[2022-07-03 09:01] LABS: BILIRUBIN,TOTAL 1.4 mg/dL (0.2-1); CREATININE 1.6 mg/dL (0.55-1.3); TOT PROT 5.7 g/dl (6.4-8.2)
[2022-07-03 09:31] LABS: ANISOCYTOSIS 0; HELMET CELLS 0; HOWELL-JOLLY BODIES 0; MACROCYTOSIS 0; OVALOCYTE 0; ROULEAU 0; SICKELED CELLS 0; TARGET CELLS 0; TEAR DROP CELLS 0; TOXIC GRANULATION 0
[2022-07-03] MEDS: AMINO ACIDS/PROTEIN HYDROLYS 30 ML LIQUID.PKT PO SCH ×2 (10:23→17:59)
[2022-07-03 10:30] LABS: ALBUMIN 2.3 g/dl (3.4-5.0)
[2022-07-03 10:32] LABS: BILIRUBIN,DIRECT 0.9 mg/dL (0.0-0.2)
[2022-07-03 10:35] LABS: TOT PROT 5.8 g/dl (6.4-8.2)
[2022-07-03 10:38] LABS: BILIRUBIN,TOTAL 1.4 mg/dL (0.2-1)
[2022-07-03] MEDS: PANTOPRAZOLE SODIUM 40 MG VIAL IVPUSH SCH (10:56)
[2022-07-03] MEDS: ASPIRIN COATED 81 MG TABLET.EC PO SCH (11:55)
[2022-07-03] MEDS: APIXABAN 2.5 MG TABLET PO SCH (11:56)
[2022-07-03] MEDS: HYDROXYCHLOROQUINE SO4 200 MG TABLET (FP) PO SCH (11:56)
[2022-07-03] MEDS: METOPROLOL TARTRATE 25 MG TABLET (FP) PO SCH (11:56)
[2022-07-03] MEDS: CLOPIDOGREL BISULFATE 75 MG TABLET (FP) PO SCH (11:56)
[2022-07-03 12:05] LABS: EPI CELLS >36 /uL (0-25.1); HYALINE CASTS 2 /uL (0-3.1); URINE APPEARANCE CLOUDY; URINE BILIRUBIN NEGATIVE (NEGATIVE); URINE COLOR YELLOW; URINE GLUCOSE (UA) NEGATIVE (NEGATIVE); URINE KETONE NEGATIVE (NEGATIVE); URINE LEUK ESTERASE NEGATIVE (NEGATIVE); URINE NITRITE NEGATIVE (NEGATIVE); URINE PROTEIN 1+ (NEGATIVE); URINE RBC 20 /uL (0-23.9); URINE WBC 38 /uL (0-25.8)
[2022-07-03 12:11] LABS: URINE BACTERIA 2.8 /uL (0-1359)
[2022-07-03] MEDS ORDERED: LACTULOSE 10 GM/15 ML BULK BOTTLE RC ONE (12:15)
[2022-07-03 12:27] LABS: ARTERIAL BLD GAS O2 SATURATION 96.3 % (95-98); ARTERIAL BLOOD GAS PO2 84.1 mmHg (80-100); ARTERIAL BLOOD GAS pH 7.373 (7.350-7.450)
[2022-07-03 12:28] LABS: ALLENS TEST POSITIVE
[2022-07-03 12:46] LABS: INR 1.51 (0.83-1.09); PROTHROMBIN TIME (PATIENT) 17.4 SEC (9.7-13.0)
[2022-07-03 12:54] LABS: HEMATOCRIT 26.1 % (35.4-49); HEMOGLOBIN 8.3 GM/dL (11.7-16.9); MCH 25.2 pg (25.7-33.7); MEAN CELL VOLUME 78.8 fl (80-96); MEAN PLT VOLUME 7.3 fl (7.5-11.1); PLATELET COUNT 302 10^3/uL (134-434); RBC 3.31 M/mm3 (4.00-5.60); RDW 18.4 % (11.9-15.9)
[2022-07-03 13:06] LABS: ALBUMIN 2.2 g/dl (3.4-5.0)
[2022-07-03 13:09] LABS: CREATININE 1.6 mg/dL (0.55-1.3)
[2022-07-03 13:10] LABS: BILIRUBIN,TOTAL 1.6 mg/dL (0.2-1)
[2022-07-03 13:17] LABS: LACTIC ACID 2.2 mmol/L (0.4-2.0)
[2022-07-03 13:42] LABS: ANISOCYTOSIS 2+; MACROCYTOSIS 0
[2022-07-03] MEDS ORDERED: DEXTROSE 5%-WATER - 1,000 ML with POTASSIUM CHLORIDE 20 MEQ IV SCH (15:00)
[2022-07-03] MEDS: DEXTROSE 5%-WATER - 1,000 ML with POTASSIUM CHLORIDE 20 MEQ IV SCH (15:44)
[2022-07-04] MEDS: METOPROLOL TARTRATE 25 MG TABLET (FP) PO SCH ×3 (00:34→21:36)
[2022-07-04] MEDS: APIXABAN 2.5 MG TABLET PO SCH ×3 (00:34→21:35)
[2022-07-04] MEDS: ATORVASTATIN CA 20 MG TABLET (FP) PO SCH ×2 (00:34→21:35)
[2022-07-04] MEDS: HYDROXYCHLOROQUINE SO4 200 MG TABLET (FP) PO SCH ×3 (04:21→21:36)
[2022-07-04] MEDS: PIPERACILLIN/TAZOB 3.375 GM 3.375 GM in DEXTROSE 5%-WATER - 50 ML IVPB SCH ×3 (04:24→17:46)
[2022-07-04] MEDS: PANTOPRAZOLE SODIUM 40 MG VIAL IVPUSH SCH ×3 (04:24→21:36)
[2022-07-04] MEDS: DEXTROSE 5%-WATER - 1,000 ML with POTASSIUM CHLORIDE 20 MEQ IV SCH ×2 (04:24→14:10)
[2022-07-04] MEDS: INSULIN SLIDING SCALE (NOVOLOG) 1 VIAL SQ SCH ×5 (07:00→21:43)
[2022-07-04 07:50] LABS: BASO % 0.2 % (0-2.0); EOS % 0.1 % (0-4.5); HEMOGLOBIN 8.2 GM/dL (11.7-16.9); LYMPH % 8.5 % (8-40); MCH 26.1 pg (25.7-33.7); MCHC 32.8 g/dl (32.0-35.9); MEAN CELL VOLUME 79.6 fl (80-96); MONO % 3.3 % (3.8-10.2); NEUT % 87.9 % (42.8-82.8); PLATELET COUNT 222 10^3/uL (134-434); RBC 3.13 M/mm3 (4.00-5.60); RDW 18.3 % (11.9-15.9); WHITE BLOOD COUNT 12.7 K/mm3 (4.0-10.0)
[2022-07-04 08:19] LABS: INR 1.5 (0.83-1.09); PROTHROMBIN TIME (PATIENT) 17.3 SEC (9.7-13.0)
[2022-07-04] MEDS: AMINO ACIDS/PROTEIN HYDROLYS 30 ML LIQUID.PKT PO SCH ×2 (08:33→17:46)
[2022-07-04 08:55] LABS: ALBUMIN 2.1 g/dl (3.4-5.0); CALCIUM 7.9 mg/dL (8.5-10.1); MAGNESIUM 2.4 mg/dL (1.8-2.4)
[2022-07-04 08:58] LABS: CREATININE 1.2 mg/dL (0.55-1.3)
[2022-07-04 09:00] LABS: BILIRUBIN,TOTAL 1.2 mg/dL (0.2-1); TOT PROT 5.5 g/dl (6.4-8.2)
[2022-07-04 09:01] LABS: ALBUMIN 2.2 g/dl (3.4-5.0)
[2022-07-04 09:03] LABS: BILIRUBIN,DIRECT 0.7 mg/dL (0.0-0.2)
[2022-07-04 09:05] LABS: TOT PROT 5.7 g/dl (6.4-8.2)
[2022-07-04 09:06] LABS: BILIRUBIN,TOTAL 1.2 mg/dL (0.2-1)
[2022-07-04 09:07] LABS: BLOOD UREA NITROGEN 46.8 mg/dL (7-18)
[2022-07-04] MEDS: KCL 10 MEQ IVPB 10 MEQ/100 ML INFUS.BAG IVPB SCH ×2 (12:03→13:04)
[2022-07-04] MEDS: ASPIRIN COATED 81 MG TABLET.EC PO SCH (13:08)
[2022-07-05] MEDS: PIPERACILLIN/TAZOB 3.375 GM 3.375 GM in DEXTROSE 5%-WATER - 50 ML IVPB SCH ×3 (02:00→17:03)
[2022-07-05 08:20] LABS: BASO % 0.2 % (0-2.0); EOS % 0.9 % (0-4.5); HEMATOCRIT 20.2 % (35.4-49); LYMPH % 12.8 % (8-40); MCH 26.3 pg (25.7-33.7); MCHC 33.3 g/dl (32.0-35.9); MEAN CELL VOLUME 78.9 fl (80-96); MONO % 2.8 % (3.8-10.2); NEUT % 83.3 % (42.8-82.8); PLATELET COUNT 159 10^3/uL (134-434); RBC 2.56 M/mm3 (4.00-5.60); RDW 18.3 % (11.9-15.9); WHITE BLOOD COUNT 9.9 K/mm3 (4.0-10.0)
[2022-07-05 08:30] LABS: INR 1.84 (0.83-1.09); PROTHROMBIN TIME (PATIENT) 21.2 SEC (9.7-13.0)
[2022-07-05 08:37] LABS: HEMOGLOBIN 6.7 GM/dL (11.7-16.9)
[2022-07-05 08:39] LABS: ALBUMIN 1.9 g/dl (3.4-5.0); BLOOD UREA NITROGEN 28.3 mg/dL (7-18); CALCIUM 7.5 mg/dL (8.5-10.1)
[2022-07-05 08:41] LABS: MAGNESIUM 2.1 mg/dL (1.8-2.4)
[2022-07-05 08:42] LABS: BILIRUBIN,DIRECT 0.6 mg/dL (0.0-0.2); BILIRUBIN,TOTAL 1.1 mg/dL (0.2-1); TOT PROT 5.2 g/dl (6.4-8.2)
[2022-07-05] MEDS: METOPROLOL TARTRATE 25 MG TABLET (FP) PO SCH ×2 (10:56→22:43)
[2022-07-05] MEDS: APIXABAN 2.5 MG TABLET PO SCH ×2 (10:56→22:42)
[2022-07-05] MEDS: AMINO ACIDS/PROTEIN HYDROLYS 30 ML LIQUID.PKT PO SCH ×2 (10:57→16:51)
[2022-07-05] MEDS: ASPIRIN COATED 81 MG TABLET.EC PO SCH (10:57)
[2022-07-05] MEDS: PANTOPRAZOLE SODIUM 40 MG VIAL IVPUSH SCH ×2 (10:57→22:13)
[2022-07-05] MEDS: HYDROXYCHLOROQUINE SO4 200 MG TABLET (FP) PO SCH (10:59)
[2022-07-05] MEDS: INSULIN SLIDING SCALE (NOVOLOG) 1 VIAL SQ SCH ×3 (11:17→22:44)
[2022-07-05] MEDS: DEXTROSE 5%-WATER - 1,000 ML with POTASSIUM CHLORIDE 20 MEQ IV SCH (13:26)
[2022-07-05] MEDS: ATORVASTATIN CA 20 MG TABLET (FP) PO SCH (22:42)
[2022-07-06] MEDS: HYDROXYCHLOROQUINE SO4 200 MG TABLET (FP) PO SCH ×3 (00:24→22:12)
[2022-07-06] MEDS: DEXTROSE 5%-WATER - 1,000 ML with POTASSIUM CHLORIDE 20 MEQ IV SCH ×3 (03:00→10:28)
[2022-07-06] MEDS: PIPERACILLIN/TAZOB 3.375 GM 3.375 GM in DEXTROSE 5%-WATER - 50 ML IVPB SCH ×3 (03:10→17:43)
[2022-07-06 07:44] LABS: BASO % 0.3 % (0-2.0); EOS % 1.4 % (0-4.5); HEMATOCRIT 28.6 % (35.4-49); HEMOGLOBIN 9.7 GM/dL (11.7-16.9); LYMPH % 13.8 % (8-40); MCH 27.8 pg (25.7-33.7); MCHC 33.8 g/dl (32.0-35.9); MEAN CELL VOLUME 82.3 fl (80-96); MEAN PLT VOLUME 7.4 fl (7.5-11.1); MONO % 2.6 % (3.8-10.2); NEUT % 81.9 % (42.8-82.8); PLATELET COUNT 154 10^3/uL (134-434); RBC 3.47 M/mm3 (4.00-5.60); RDW 18.9 % (11.9-15.9); WHITE BLOOD COUNT 10.9 K/mm3 (4.0-10.0)
[2022-07-06 07:51] LABS: CALCIUM 7.3 mg/dL (8.5-10.1); INR 1.62 (0.83-1.09); PROTHROMBIN TIME (PATIENT) 18.7 SEC (9.7-13.0)
[2022-07-06 07:52] LABS: ALBUMIN 1.8 g/dl (3.4-5.0); BLOOD UREA NITROGEN 29.9 mg/dL (7-18)
[2022-07-06 07:54] LABS: BILIRUBIN,DIRECT 0.6 mg/dL (0.0-0.2)
[2022-07-06 07:55] LABS: CREATININE 0.9 mg/dL (0.55-1.3)
[2022-07-06 07:56] LABS: BILIRUBIN,TOTAL 1.1 mg/dL (0.2-1); TOT PROT 5.3 g/dl (6.4-8.2)
[2022-07-06] MEDS: INSULIN SLIDING SCALE (NOVOLOG) 1 VIAL SQ SCH ×5 (08:23→22:00)
[2022-07-06] MEDS: AMINO ACIDS/PROTEIN HYDROLYS 30 ML LIQUID.PKT PO SCH ×2 (08:49→18:01)
[2022-07-06] MEDS ORDERED: INSULIN (NOVOLOG) ASPART 100 UNITS/ML 10ML VIAL ONE (09:44)
[2022-07-06] MEDS: ASPIRIN COATED 81 MG TABLET.EC PO SCH (10:19)
[2022-07-06] MEDS: APIXABAN 2.5 MG TABLET PO SCH ×2 (10:19→22:11)
[2022-07-06] MEDS: PANTOPRAZOLE SODIUM 40 MG VIAL IVPUSH SCH ×2 (10:20→22:12)
[2022-07-06] MEDS: METOPROLOL TARTRATE 25 MG TABLET (FP) PO SCH ×2 (10:23→22:11)
[2022-07-06] MEDS: ATORVASTATIN CA 20 MG TABLET (FP) PO SCH (22:11)
[2022-07-07] MEDS: PIPERACILLIN/TAZOB 3.375 GM 3.375 GM in DEXTROSE 5%-WATER - 50 ML IVPB SCH ×2 (02:00→09:27)
[2022-07-07] MEDS: DEXTROSE 5%-WATER - 1,000 ML with POTASSIUM CHLORIDE 20 MEQ IV SCH ×3 (04:09→11:55)
[2022-07-07] MEDS: INSULIN SLIDING SCALE (NOVOLOG) 1 VIAL SQ SCH ×2 (06:34→11:58)
[2022-07-07] MEDS: AMINO ACIDS/PROTEIN HYDROLYS 30 ML LIQUID.PKT PO SCH (08:44)
[2022-07-07] MEDS: METOPROLOL TARTRATE 25 MG TABLET (FP) PO SCH (09:25)
[2022-07-07] MEDS: PANTOPRAZOLE SODIUM 40 MG VIAL IVPUSH SCH (09:25)
[2022-07-07] MEDS: HYDROXYCHLOROQUINE SO4 200 MG TABLET (FP) PO SCH (09:25)
[2022-07-07] MEDS: APIXABAN 2.5 MG TABLET PO SCH (09:25)
[2022-07-07] MEDS: ASPIRIN COATED 81 MG TABLET.EC PO SCH (09:26)
[2022-07-07 09:58] LABS: BASO % 0.6 % (0-2.0); EOS % 1.9 % (0-4.5); HEMATOCRIT 26.6 % (35.4-49); HEMOGLOBIN 8.8 GM/dL (11.7-16.9); LYMPH % 10.4 % (8-40); MCHC 33.1 g/dl (32.0-35.9); MEAN CELL VOLUME 81.7 fl (80-96); MEAN PLT VOLUME 7.3 fl (7.5-11.1); MONO % 3.6 % (3.8-10.2); NEUT % 83.5 % (42.8-82.8); PLATELET COUNT 152 10^3/uL (134-434); RBC 3.26 M/mm3 (4.00-5.60); RDW 19.5 % (11.9-15.9); WHITE BLOOD COUNT 11.6 K/mm3 (4.0-10.0)
[2022-07-07 10:06] LABS: INR 1.47 (0.83-1.09)
[2022-07-07 10:12] LABS: ALBUMIN 1.7 g/dl (3.4-5.0)
[2022-07-07 10:15] LABS: BILIRUBIN,DIRECT 0.5 mg/dL (0.0-0.2); CALCIUM 7.4 mg/dL (8.5-10.1)
[2022-07-07 10:16] LABS: BLOOD UREA NITROGEN 26.7 mg/dL (7-18); MAGNESIUM 2.1 mg/dL (1.8-2.4)
[2022-07-07 10:17] LABS: ALBUMIN 1.8 g/dl (3.4-5.0); TOT PROT 5.3 g/dl (6.4-8.2)
[2022-07-07 10:19] LABS: CREATININE 0.9 mg/dL (0.55-1.3)
[2022-07-07 10:21] LABS: TOT PROT 5.3 g/dl (6.4-8.2)
[2022-07-07] MEDS ORDERED: ACETAMINOPHEN 1000 MG/100 ML BAG IVPB ONE (12:43)
[2022-07-07] MEDS ORDERED: METOPROLOL TARTRATE 5 MG/5 ML VIAL IVPUSH PRN (13:10)
[2022-07-07] MEDS ORDERED: morphine SULFATE 4 MG/ML VIAL IVPUSH PRN (14:53)
[2022-07-07] MEDS ORDERED: INSULIN SLIDING SCALE (NOVOLOG) 1 VIAL SQ SCH (16:30)
[2022-07-07] MEDS ORDERED: AMINO ACIDS/PROTEIN HYDROLYS 30 ML LIQUID.PKT PO SCH (17:30)
[2022-07-07] MEDS: SCOPOLAMINE HYDROBROMIDE 1 PATCH PATCH.TD72 TD SCH (17:40)
[2022-07-07] MEDS ORDERED: PIPERACILLIN/TAZOB 3.375 GM 3.375 GM in DEXTROSE 5%-WATER - 50 ML IVPB SCH (18:00)
[2022-07-07] MEDS: DEXTROSE 5%-0.45% SALINE 1,000 ML IV SCH (18:39)
[2022-07-07] MEDS ORDERED: ATORVASTATIN CA 20 MG TABLET (FP) PO SCH (22:00)
[2022-07-07] MEDS ORDERED: APIXABAN 2.5 MG TABLET PO SCH (22:00)
[2022-07-07] MEDS ORDERED: HYDROXYCHLOROQUINE SO4 200 MG TABLET (FP) PO SCH (22:00)
[2022-07-07] MEDS ORDERED: PANTOPRAZOLE SODIUM 40 MG VIAL IVPUSH SCH (22:00)
[2022-07-07] MEDS ORDERED: METOPROLOL TARTRATE 25 MG TABLET (FP) PO SCH (22:00)
[2022-07-08] MEDS ORDERED: DEXTROSE 5%-WATER - 1,000 ML with POTASSIUM CHLORIDE 20 MEQ IV SCH (00:06)
[2022-07-08] MEDS ORDERED: CLOPIDOGREL BISULFATE 75 MG TABLET (FP) PO SCH (10:00)
[2022-07-08] MEDS ORDERED: ASPIRIN COATED 81 MG TABLET.EC PO SCH (10:00)
[2022-07-08] MEDS: DEXTROSE 5%-0.45% SALINE 1,000 ML IV SCH (17:37)
[2022-07-09] MEDS: DEXTROSE 5%-0.45% SALINE 1,000 ML IV SCH (21:23)
[2022-07-10] MEDS: METOPROLOL TARTRATE 25 MG TABLET (FP) PO SCH ×3 (02:55→21:58)
[2022-07-10] MEDS: DEXTROSE 5%-0.45% SALINE 1,000 ML IV SCH ×2 (10:31→21:58)
[2022-07-10] MEDS: SCOPOLAMINE HYDROBROMIDE 1 PATCH PATCH.TD72 TD SCH (19:00)
[2022-07-11] MEDS: METOPROLOL TARTRATE 25 MG TABLET (FP) PO SCH ×2 (09:39→22:26)
[2022-07-11] MEDS: DEXTROSE 5%-0.45% SALINE 1,000 ML IV SCH ×2 (09:40→22:26)
[2022-07-12 01:58] VITALS: BP 113/81; PULSE 104; RESP 18; TEMP 98.8
== END 2022-07-12 09:00 | disposition home health service (06) | DRG 64 ==
LOC: JER 18:19 → JERBED 22:42 → J4W 06-25 19:03 → J8W 07-07 12:36
PROVIDERS: ADMIT Internal Medicine; ATTEND Nurse Practitioner Acute Care
PROC: 30233N1 Transfusion of Nonautologous Red Blood Cells into Peripheral Vein, Percutaneous Approach (ICD-10-PCS; 2022-07-02)
PROC: 0DH67UZ Insertion of Feeding Device into Stomach, Via Natural or Artificial Opening (ICD-10-PCS; principal; 2022-07-03)
PROC: 3E0G76Z Introduction of Nutritional Substance into Upper GI, Via Natural or Artificial Opening (ICD-10-PCS; 2022-07-03)
DX: I63.89 Other cerebral infarction (principal); E43 Unspecified severe protein-calorie malnutrition; G93.41 Metabolic encephalopathy; K72.00 Acute and subacute hepatic failure without coma; J69.0 Pneumonitis due to inhalation of food and vomit; N17.9 Acute kidney failure, unspecified; Z68.1 Body mass index [BMI] 19.9 or less, adult; I48.92 Unspecified atrial flutter; E87.20 Acidosis, unspecified; E87.0 Hyperosmolality and hypernatremia; K92.2 Gastrointestinal hemorrhage, unspecified; E11.51 Type 2 diabetes mellitus with diabetic peripheral angiopathy without gangrene; Z79.84 Long term (current) use of oral hypoglycemic drugs; E11.65 Type 2 diabetes mellitus with hyperglycemia; M06.9 Rheumatoid arthritis, unspecified; R79.89 Other specified abnormal findings of blood chemistry; D64.9 Anemia, unspecified
CPT/HCPCS: 0241U-QW; 36415; 36430; 36600; 70450-TC; 70551-TC; 71045-TC-FY; 71046-TC-FY; 76705-TC; 80048; 80053; 80076; 81003; 82010; 82140; 82550; 82553; 82803; 82962; 82977; 83010; 83036; 83540; 83550; 83605; 83615; 83735; 84100; 84436; 84443; 84480; 84484; 85025; 85045; 85379; 85610; 86704; 86708; 86780; 86803; 86850; 86900; 86901; 86922; 87040; 87086; 87340; 87517; 93005; 93010; 93306-TC; 93880-TC; 93970-TC; 97116-GP; 97162-GP; 99285-25; 99406; G0463-25; P9058